=== PATIENT | female | born 1970 | race Caucasian/White ===

== ENCOUNTER 2017-12-25 09:58 | Emergency (ER) | payer OTHER ==
--- NOTE | 2017-12-25 11:25 | RAD ---
INDICATION: Right rib pain after a fall COMPARISON: None TECHNIQUE: PA and lateral views of the chest and 3 views of the right ribs were obtained. FINDINGS: There is an external metallic marker overlying the lower right lateral ribs corresponding to the focality of the patient's pain. The heart and mediastinum are normal in size and contour. The lungs are grossly clear. There is no evidence of large pleural effusion. The ribs are intact. No rib fractures are identified. Mild degenerative changes of the thoracic spine includes loss of intervertebral disc height. IMPRESSION: NO RADIOGRAPHIC EVIDENCE OF ACUTE CARDIOPULMONARY DISEASE OR RADIOGRAPHICALLY APPARENT RIB FRACTURE.
[2017-12-25 12:34] VITALS: BP 123/71
--- NOTE | 2017-12-27 07:54 | UC ---
- Progress Note Progress Note: CXR Ribs neg no change Discharge - Sign-Out/Discharge Documenting (check all that apply): Post-Discharge Follow Up All imaging exams completed and their final reports reviewed: No Studies - Discharge Plan Condition: Stable Disposition: HOME Patient Education Materials: Hematuria (ED), Flank Pain (ED), Hematoma (ED) Referrals: Elia Ryan MD [Primary Care Provider] - Additional Instructions: Please go to the Emergency Dept immediately after discharge for further evaluation. you need an ultrasound of your right kidney to ensure you did not injure your kidney. - Billing Disposition and Condition Condition: STABLE Disposition: Home
--- NOTE | 2017-12-28 08:38 | ED ---
Adult Trauma - HPI Summary HPI Summary: pt was at home. she fell and hit the bath tub. she hit her flank area. she states she urinated blood after she fell. she denies any loc. she states that she is having persistent pain and wanted to be evaluated. she denies nausea/ vomiting. - History of Current Complaint Chief Complaint: UCGeneralIllness Stated Complaint: RIGHT SIDED RIB PAIN S/P FALL Hx Obtained From: Patient Hx Last Menstrual Period: 12/25/17 Mechanism of Injury: Blunt Trauma Ambulatory at the Scene: Yes Loss of Consciousness: no loss of consciousness Pain Intensity: 0 Pain Scale Used: 0-10 Numeric - Allergy/Home Medications Allergies/Adverse Reactions: Allergies Allergy/AdvReac Type Severity Reaction Status Date / Time Penicillins Allergy Vomiting Verified 12/25/17 10:27 Home Medications: Home Medications Clomipramine HCl [Anafranil] 50 mg PO DAILY 12/25/17 [History Confirmed 12/25/17 ] PMH/Surg Hx/FS Hx/Imm Hx Previously Healthy: Yes Endocrine/Hematology History: Denies: Hx Anticoagulant Therapy Respiratory History: Denies: Hx Asthma - Cancer History Hx Chemotherapy: No Hx Radiation Therapy: No Infectious Disease History: No Infectious Disease History: Denies: Traveled Outside the [place] in Last 30 Days - Social History Alcohol Use: None Substance Use Type: Reports: None Smoking Status (MU): Never Smoked Tobacco Review of Systems Constitutional: Negative Eyes: Negative Positive: Epistaxis Cardiovascular: Negative Respiratory: Negative Positive: Abdominal Pain Positive: hematuria Positive: Other - back pain Positive: Bruising - back Neurological: Negative Psychological: Normal All Other Systems Reviewed And Are Negative: No Physical Exam Triage Information Reviewed: Yes Vital Signs On Initial Exam: Initial Vitals Temp Pulse Resp BP Pulse Ox 98.1 F 84 15 118/75 100 12/25/17 10:29 12/25/17 10:29 12/25/17 10:29 12/25/17 10:29 12/25/17 10:29 Vital Signs Reviewed: Yes Appearance: Positive: Well-Appearing, Well-Nourished Skin: Positive: Warm, Dry, Other - small amount of bruising noted to flank area Head/Face: Positive: Normal Head/Face Inspection Eyes: Positive: Normal, EOMI, MAICO ENT: Positive: Normal ENT inspection, Hearing grossly normal, Pharynx normal Neck: Positive: Supple, Nontender Respiratory/Lung Sounds: Positive: Clear to Auscultation, Breath Sounds Present Cardiovascular: Positive: Normal, RRR Abdomen Description: Positive: Other: - tender to ruq, small amount of bruising to flank area Musculoskeletal: Positive: Normal, Strength/ROM Intact Neurological: Positive: Normal, Sensory/Motor Intact, Alert, Oriented to Person Place, Time, CN Intact II-III Psychiatric: Positive: Normal AVPU Assessment: Alert Diagnostics - Vital Signs Vital Signs Temp Pulse Resp BP Pulse Ox 12/25/17 12:33 98.5 F 87 16 123/71 100 12/25/17 10:29 98.1 F 84 15 118/75 100 - Laboratory Lab Results: Lab Results 12/25/17 Range/Units 11:29 POC Urine Color Yellow POC Urine Clarity Clear POC Urine pH 5.5 (5-9) POC Ur Specif [place] 1.025 (1.010-1.030) POC Urine Protein Negative (Negative) POC Ur Glucose (UA) Negative (Negative) POC Urine Ketones Negative (Negative) POC Urine Blood 1+ A (Negative) POC Urine Nitrite Negative (Negative) POC Urine Bilirubin Negative (Negative) POC Urine Urobilinogen 0.2 (Negative) POC U Leukocyte Esteras Negative (Negative) Lab Statement: Any lab studies that have been ordered have been reviewed, and results considered in the medical decision making process. Adult Trauma Course/Dx - Course Course Of Treatment: pt's urine shows a small amount of blood. with pt's gross hematuria post trauma with bruising noted to her flank region and her ruq tenderness, I am concerned about renal injury or possible liver injury, I will transfer pt to the emergency dept for further evaluation. I informed her that she will need an us of her kidneys and abdomen at minimum. or she may need a CT of her abd/pelvis. Pt was comfortable with the plan of going to the emergency dept. I called [facility], the ED MD accepted pt for transfer. - Diagnoses Provider Diagnoses: Hematuria, Fall Discharge - Sign-Out/Discharge Documenting (check all that apply): Patient Departure All imaging exams completed and their final reports reviewed: No Studies - Discharge Plan Condition: Stable Disposition: TRANSFERRED TO [facility] Patient Education Materials: Hematuria (ED), Flank Pain (ED), Hematoma (ED) Referrals: Elia Ryan MD [Primary Care Provider] - Additional Instructions: Please go to the Emergency Dept immediately after discharge for further evaluation. you need an ultrasound of your right kidney to ensure you did not injure your kidney. - Billing Disposition and Condition Condition: STABLE [facility]
== END 2017-12-25 12:34 | disposition swing bed (61) ==
LOC: UCCORT 09:58
DX: R31.9 Hematuria, unspecified (principal); Z88.0 Allergy status to penicillin
CPT/HCPCS: 71046; 81003; 99212; G0463